=== PATIENT | female | born 1985 | race Caucasian/White ===

== ENCOUNTER 2023-07-13 12:10 | Emergency (ER) | payer OTHER, SELFPAY ==
--- NOTE | 2023-07-13 12:21 | ED.GENADULT ---
HPI - General Adult General Chief complaint: Upper Respiratory Symptoms Stated complaint: Sore throat Time Seen by Provider: 07/13/23 12:37 Source: patient Mode of arrival: ambulatory Limitations: no limitations History of Present Illness HPI narrative: patient is a 38-year-old female who presents emergency department report of sore throat for approximately 1 week had nausea earlier in the week but this has resolved, headache last night but also has resolved. She reports her daughter having tested positive for strep throat last week, has been on antibiotics for about 5 days at this point. 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 She expresses great concern that this is strep throat. She reports that she is able to eat and drink normally, swallowing without difficulty. Denies fevers, chills, neck pain, neck stiffness, chest pain, shortness of breath, abdominal pain. Related Data Previous Rx's ?Medication ?Instructions ?Recorded azithromycin 500 mg tablet 500 mg PO DAILY 5 days #5 tabs 07/13/23 Allergies Allergy/AdvReac Type Severity Reaction Status Date / Time amoxicillin [AMOXICILLIN] Allergy Severe HIVES Verified 07/13/23 12:25 penicillin V Allergy Unknown rash Verified 07/13/23 12:25 Penicillins [PENICILLINS] Allergy Unknown HIVES Verified 07/13/23 12:25 Review of Systems Review of Systems: Yes all other systems are reviewed and are negative PMFSH Past Medical History Attestation statement: The following information was validated with the patient. Source: old records reviewed Social History Social History Advance Directives: Yes Advance Directives Information Provided: Yes Advance Directives on File: No Physical Exam ED Vital Signs: Vital Signs - 24 hr 07/13/23 12:22 Temperature 98.9 F Pulse Rate 82 Respiratory Rate 18 Blood Pressure 125/78 Pulse Oximetry 100 Oxygen Delivery Method Room Air BMI result Body Mass Index 27.1 Appearance: Alert.?Oriented to person, place and time. No acute distress.?Normal affect. Eyes: Pupils equal, round and reactive to light.? ENT: Pharynx mildly erythematous. No tonsillar hypertrophy. No exudates. No trismus. No drooling. Uvula is midline. No petechiae. TM normal bilaterally Neck: Normal inspection.? Neck supple.? No? cervical adenopathy. CVS: Heart sounds normal. Normal heart rate and rhythm.? Pulses normal.?? Respiratory: No respiratory distress.? Lung sounds clear to auscultation bilaterally?? Abdomen: Soft and non-tender. Normoactive bowel sounds. Skin: Skin warm and dry.? Normal skin color.? Extremities: No lower extremity edema.? Neuro: Moves all extremities spontaneously. Sensation intact bilaterally. Ambulates with normal steady gait. Course Course Course Narrative: This is a rapid medical exam performed by Martell Noland NP: Additional HPI, ROS, PE not included below will be deferred to primary provider. Patient is a 38-year-old female presenting to the emergency department with complaint of sore throat for around one week. Daughter just had strep. Denies fevers, nausea on Sunday, headache yesterday. Plan: viral and strep swabs Medical Decision Making Medical Decision Making MDM Narrative: Patient is a 38 year old female, presenting for evaluation of upper respiratory symptoms. COVID-19/ influenza/ RSV negative. Strep A testing Negative. findings not suggestive of peritonsillar retropharyngeal abscess. However, given her recent close exposure to strep a positive child, will treat with a course of antibiotics. At this time history and physical exam not consistent with pneumonia. Well-appearing, nontoxic, afebrile, no tachycardia or tachypnea/hypoxia. Speaking clear full sentences, ambulatory with steady gait. Discussed conservative treatment including rest, hydration, Tylenol/ibuprofen as needed for fever and body aches, saline nasal spray, humidifier, [id number] cold medication. Advised to follow-up with primary care provider as needed, discussed reasons to return back to the emergency department. All questions were answered. Patient discharged home in stable condition. Differential Diagnosis Differential Diagnoses: The differential diagnosis associated with the presentation includes ( see narrative above) Admission/Observation Consideration of admission/observation: Escalation of care including admission/observation considered ( see narrative above) Lab Data [facility] Lab Attestation statement: I reviewed the patient's lab results. ( see narrative above) Labs: Lab Results 07/13/23 Range/Units 13:04 Influenza Type A (PCR) NEGATIVE (Negative) Influenza Type B (PCR) NEGATIVE (Negative) RSV RNA Qual (PCR) NEGATIVE (Negative) SARS-CoV-2 RNA (RT-PCR) NEGATIVE (Negative) S. pyogenes GrpA RITA Negative (Negative) External Record Review External record reviewed: Outpatient record Prescription Management I considered prescription management with: Pain Medication and Antibiotic Discharge Plan Discharge Clinical Impression: Pharyngitis Patient Disposition: Home, Self-Care Instructions: Pharyngitis (ED) Additional Instructions: Your testing today for strep throat was negative. Testing for COVID - 19/influenza / RSV was negative. Given your recent close exposure to child who has tested positive for strep, you are being treated with a course of antibiotics. Please follow-up with your primary care provider. You may also purchase throat lozenges/Chloraseptic throat spray from the pharmacy. Warm saltwater gargles or warmth to with honey may also be helpful for symptoms. You may return back to emergency department any new or worsening symptoms or concerns. Prescriptions: New azithromycin 500 mg tablet 500 mg PO DAILY 5 Days Qty: 5 0RF Referrals: Galindo Ramírez MD [Primary Care Provider] - Print Language: Turkmen
[2023-07-13 12:22] VITALS: BP 125/78; PULSE 82; RESP 18; TEMP 37.2; O2SAT 100; BMI 27.1
[2023-07-13 13:21] LABS: IDNOW Serial# 58CA691E; Strep A Nucleic Acid Negative (Negative)
[2023-07-13 13:50] LABS: Influenza A PCR NEGATIVE (Negative); Influenza B PCR NEGATIVE (Negative); Resp Syncy Virus RNA Qual PCR NEGATIVE (Negative); SARS COV2 PCR INHOUSE NEGATIVE (Negative)
[2023-07-13 14:14] VITALS: BP 125/78; PULSE 82; RESP 18; TEMP 37.2; O2SAT 98
== END 2023-07-13 14:15 | disposition home or self-care (01) ==
PROVIDERS: Registered Nurse Emergency; Emergency Provider Student in an Organized Health Care Education/Training Program; PCP Internal Medicine
DX: J02.9 Acute pharyngitis, unspecified (principal); Z11.52 Encounter for screening for COVID-19; Z20.822 Contact with and (suspected) exposure to COVID-19
CPT/HCPCS: 0241U; 87651; 99282; 99283

== ENCOUNTER 2024-11-07 12:00 | Emergency (ER) | payer OTHER, SELFPAY ==
--- NOTE | ~2024-11-07 | XR_ITS ---
EXAMINATION: XR RIBS 4 VIEWS BILATERAL WITH PA CHEST HISTORY: bilat lower pain COMPARISON: Comparison is made with the prior examination dated 07/25/2016. FINDINGS: A single PA view of the chest and 3 views of the bilateral ribs are submitted. The lungs are expanded and clear. There is no pleural effusion, pneumothorax, or pulmonary vascular congestion. The heart is normal in size. The bones are intact. No rib fractures identified. XR/XR ribs BI min 4V w CXR1V IMPRESSION: No acute cardiopulmonary abnormality. No evidence of fracture of the bilateral ribs. Electronically signed by: Indio Metzger MD 11/07/2024 12:26 PM EDT
[2024-11-07 12:03] VITALS: BP 131/68; PULSE 87; RESP 18; TEMP 36.6; O2SAT 97; BMI 25.7
--- NOTE | 2024-11-07 12:03 | ED.GENADULT ---
HPI - General Adult General Chief complaint: General Medical Stated complaint: rib pain Time Seen by Provider: 11/07/24 13:27 Source: patient and RN notes reviewed Mode of arrival: ambulatory Limitations: no limitations History of Present Illness ED Provider: JUWAN Hanley HPI narrative: 39-year-old female without significant medical history presents to the ED due to chronic rib pain. 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 Patient states Sunday pain became worse making her very uncomfortable, having difficulty bending down to the pain. Patient states she has not taken any OTC pain relievers for management. Additionally patient states she has been constantly spotting since getting a Depo-Provera shot approximately 2 months ago. Denies recent illness, chest pain, shortness of breath, abdominal pain, nausea, vomiting MD complaint: Bilateral rib pain Related Data Previous Rx's ?Medication ?Instructions ?Recorded azithromycin 500 mg tablet 500 mg PO DAILY 5 days #5 tabs 07/13/23 Allergies Allergy/AdvReac Type Severity Reaction Status Date / Time amoxicillin (AMOXICILLIN) Allergy Severe HIVES Verified 11/07/24 12:04 penicillin V Allergy Unknown rash Verified 11/07/24 12:04 Penicillins (PENICILLINS) Allergy Unknown HIVES Verified 11/07/24 12:04 Review of Systems Review of Systems: CONST: Negative for fever, body aches and chills. HENT: Negative for neck pain/stiffness, headache, congestion, sore throat, swelling. EYES: Negative for discharge/pain or vision changes. RESP: Negative for cough/hemoptysis and shortness of breath. CV: Negative chest pain, difficulty breathing, palpitations. ABD: Negative pain, nausea, vomiting. POS B/L lower rib pain : Negative increase frequency, dysuria, blood in urine or stool. MUSC: Negative for muscle aches, edema. SKIN: Negative rash, lesions/sores. NEURO: Negative headache, dizziness, weakness. Yes all other systems are reviewed and are negative [facility] Past Medical History Attestation statement: The following information was validated with the patient. Source: old records reviewed and nursing notes reviewed Social History Social History Smoked in Last 30 Days: Yes Use of substances other than those prescribed or required for medical reasons: No Advance Directives: No Advance Directives Information Provided: Yes Patient : No Physical Exam ED Vital Signs: Vital Signs - 24 hr 11/07/24 12:03 11/07/24 14:00 Temperature 97.8 F 98.1 F Pulse Rate 87 80 Respiratory Rate 18 15 Blood Pressure 131/68 127/76 Pulse Oximetry 97 99 Oxygen Delivery Method Room Air Room Air BMI result Body Mass Index 25.7 GENERAL APPEARANCE: ?AxOx4, generally well-appearing, no acute distress. HEENT: ?NC, AT. MMM. EOMI, clear conjunctiva, oropharynx clear. NECK: ?Supple without lymphadenopathy.? No stiffness or restricted ROM. HEART:? Normal rate and regular rhythm, normal S1/S2, no m/r/g LUNGS:? CTAB, moving air well. No crackles or wheezes are heard. ABDOMEN: ?Soft, nontender, nondistended with good bowel sounds heard. TTP of B/L ribs 8-10, no overlying skin changes, full ROM of torso BACK: No CVAT, no obvious deformity. EXTREMITIES: ?Without cyanosis, clubbing or edema. NEUROLOGICAL: ?Grossly nonfocal. Alert and oriented, moving all 4 extremities. Observed to ambulate with normal gait. Skin: ?Warm and dry without any rash. Course Course Course Narrative: This is a rapid medical exam performed by Martell Noland NP: Additional HPI, ROS, PE not included below will be deferred to primary provider. Patient is a 39-year-old female presenting with complaint of bilateral lower rib pain for the past few days. Denies fall or other trauma. Denies recent cough. Notes that she recently got a Depo shot, has been spotting since. Plan: Xray, labs Medical Decision Making Medical Decision Making MDM Narrative: 39-year-old female without significant medical history presents to the ED due to chronic rib pain. 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 Patient states Sunday pain became worse making her very uncomfortable, having difficulty bending down to the pain. Patient states she has not taken any OTC pain relievers for management. Additionally patient states she has been constantly spotting since getting a Depo-Provera shot approximately 2 months ago. VS on initial observation-normotensive BP 127/76, pulse rate of 80, respiratory rate 15, afebrile with oral temp of 98.1?, O2 saturation 99% on room air. Patient with tenderness of bilateral ribs 8 through 10, no back tenderness, no overlying skin changes. Plan: Labs, CXR/XR ribs Course 14:31- Labs without leukocytosis/leukopenia, H&H stable, no electrolyte abnormality CXR/XR ribs negative for fracture or dislocation. Patient without recent illness or cough, no increase of physical activity, no trauma or injury. At this time I believe patient may be experiencing costochondritis or slipping rib syndrome. I counseled patient to follow up with primary care provider, states she does not have one I provided referrals and discharge paperwork. I counseled patient to alternate 500 mg of Tylenol and 400 mg of ibuprofen every 6 hours for management of pain and possible inflammation. Patient was concerned that she had been spotting since getting Depo-Provera shot 2 months ago, patient with light spotting not soaking through pads. I counseled patient that this can be normal 3 to six-months after receiving shot and only needs to be concerned when she is soaking through more than 1 pad per hour. Patient feels good for to go home for self-care, she is in agreement with the plan, I counseled patient on strict return precautions. Differential Diagnosis Differential Diagnoses: The differential diagnosis associated with the presentation includes Rib fracture Rib dislocation Costochondritis, slipping rib syndrome Admission/Observation Consideration of admission/observation: Escalation of care including admission/observation considered Lab Data MDM Lab Attestation statement: I reviewed the patient's lab results. 11/07/24 12:13 11/07/24 12:13 Labs: Lab Results 11/07/24 11/07/24 Range/Units 12:13 12:41 WBC 6.6 (4.8-10.8) X10*3/uL RBC 3.75 L (4.20-5.50) X10*6/uL Hgb 10.6 L (12.0-16.0) g/dl Hct 31.8 L (37.0-47.0) % MCV 84.8 (80.0-98.0) fL MCH 28.3 (27.0-33.0) pg MCHC 33.3 (31.0-35.0) g/dl RDW 14.2 (11.0-16.0) % Plt Count 309 (160-400) X10*3/uL MPV 9.3 L (9.4-12.3) fL Immature Gran % (Auto) 0.2 (0.0-0.4) % Neut % (Auto) 59.3 (45-73) % Lymph % (Auto) 32.9 (20-40) % Alcorn % (Auto) 5.3 (2-11) % Eos % (Auto) 1.5 (0-4) % Baso % (Auto) 0.8 (0-2) % Lymph # (Auto) 2.2 (1.2-4.9) X10*3/uL Alcorn # (Auto) 0.4 (0.1-1.2) X10*3/uL Eos # (Auto) 0.1 (0.0-0.4) X10*3/uL Baso # (Auto) 0.1 (0.0-0.2) X10*3/uL Abs Immat Gran (auto) 0.01 (0.00-0.03) X10*3/uL Absolute Neuts (auto) 3.9 (2.0-8.3) x10*3/uL Absolute Nucleated RBC 0.000 (0.0-0.012) X10*3/uL Nucleated RBC % (auto) 0.0 (0.0-0.2) /100WBC PT 12.1 (10.9-12.4) SEC INR 1.1 (0.9-1.1) Sodium 139 (135-145) mmol/L Potassium 3.9 (3.3-5.1) mmol/L Chloride 110 H (96-108) mmol/L Carbon Dioxide 22 (22-29) mmol/L Anion Gap 11 L (12-20) BUN 14 (9-16) mg/dL Creatinine 0.79 (0.5-1.4) mg/dL Estim Creat Clear Calc 99.9 Estimated GFR > 60 Random Glucose 93 (60-115) mg/dL Calcium 8.5 (8.4-10.2) mg/dL Total Bilirubin 0.3 (0.0-1.0) mg/dL AST 18 (5-31) U/L ALT 12 (0-31) U/L Alkaline Phosphatase 37 L (39-117) U/L Total Protein 7.0 (6.5-8.0) g/dL Albumin 4.5 (3.5-5.0) g/dL Beta HCG, Quant < 2 mIU/mL Independent Interpretation I performed an independent interpretation of an: Plain X-Ray Interpretation: I personally interpreted the chest/ribs x-ray which was negative for dislocation or fracture, I agree with the radiologist's interpretation Radiology Impression Discussion of test interpretation with radiology: I have reviewed the radiologist's reading. Radiologist Impression: CXR/XR ribs FINDINGS: A single PA view of the chest and 3 views of the bilateral ribs are submitted. The lungs are expanded and clear. There is no pleural effusion, pneumothorax, or pulmonary vascular congestion. The heart is normal in size. The bones are intact. No rib fractures identified. XR/XR ribs BI min 4V w CXR1V IMPRESSION: No acute cardiopulmonary abnormality. No evidence of fracture of the bilateral ribs. Electronically signed by: Indio Metzger MD 11/07/2024 12:26 PM EDT RP Dictated By: Indio Metzger MD Signed By: <Electronically signed by Indio Metzger MD in OV> 11/07/24 1226 External Record Review External record reviewed: Inpatient record, Office record and Outpatient record Chronic Conditions Patient?s care impacted by: Other (No medical history) Discharge Plan Discharge Clinical Impression: Costochondritis Patient Disposition: Home, Self-Care Instructions: Costochondritis (DC) Additional Instructions: You were evaluated in the ED today due to bilateral rib pain. Your lab work was normal and negative for any infectious process, no electrolyte abnormality. Your chest x-ray revealed normal heart, lungs, without evidence of fracture or dislocation of the bilateral ribs. At this time I suspect he may have a condition called costochondritis which was inflammation of the cartilage that connects ribs to her breastbone, or possibly slipping rib syndrome which is a condition where the lower ribs become abnormally mobile which can cause pain and discomfort, both non-emergent conditions. To manage pain at home I recommend alternating 500 mg of Tylenol and 400 mg of ibuprofen every 6 hours. You can ice and/or use heat whatever you prefer to help manage your symptoms. Please return to the emergency department if you experience worsening rib pain, difficulty breathing, shortness of breath, chest pain, fevers over 100.4?, nausea, vomiting or any other new/worsening/concerning symptoms. Prescriptions: No Action azithromycin 500 mg tablet 500 mg PO DAILY 5 Days Qty: 5 0RF Referrals: [facility] [Provider Group, Family Practice] [facility] [Provider Group, Family Practice] Ronak Modi DO [Physician, Family Practice] Alexa Preston NP [Nurse Practitioner, Family Practice] Print Language: Bulgarian
[2024-11-07 12:18] LABS: MANUAL DIFF FLAG NO
[2024-11-07 12:20] LABS: Hematocrit 31.8 % (37.0-47.0); Hemoglobin 10.6 g/dl (12.0-16.0); Imm Gran Abs Auto 0.01 X10*3/uL (0.00-0.03); Imm Gran Pct Auto 0.2 % (0.0-0.4); Lymphocytes Absolute Auto 2.2 X10*3/uL (1.2-4.9); Mean Corpuscular HGB Conc 33.3 g/dl (31.0-35.0); Mean Corpuscular Hemoglobin 28.3 pg (27.0-33.0); Mean Corpuscular Volume 84.8 fL (80.0-98.0); NRBC Abs Auto 0.000 X10*3/uL (0.0-0.012); NRBC Pct Auto 0.0 /100WBC (0.0-0.2); Platelet Count 309 X10*3/uL (160-400); Red Blood Count 3.75 X10*6/uL (4.20-5.50); White Blood Count 6.6 X10*3/uL (4.8-10.8)
[2024-11-07 12:42] LABS: Alanine Aminotransferase 12 U/L (0-31); Albumin Level 4.5 g/dL (3.5-5.0); Alkaline Phosphatase 37 U/L (39-117); Anion Gap 11 (12-20); Aspartate Amino Transferase 18 U/L (5-31); Blood Urea Nitrogen 14 mg/dL (9-16); Calcium 8.5 mg/dL (8.4-10.2); Carbon Dioxide 22 mmol/L (22-29); Chloride 110 mmol/L (96-108); Creatinine Clr Calc Pharmacy 99.9; Estimated Glomerular Filt Rate > 60; Potassium 3.9 mmol/L (3.3-5.1); Sodium 139 mmol/L (135-145); Total Protein 7.0 g/dL (6.5-8.0)
--- OUTSIDE RECORDS SUMMARY | 2024-11-07 13:11 | XMS_ITS ---
Author Name [facility] Organization Unknown Care Team Organization Name Specialty Phone Email Start Date End Da te [facility] Galindo Ramírez Primary Care 06/06/20222023 [facility] Sonja Greene Primary Care 01/10/20222023
--- OUTSIDE RECORDS SUMMARY | 2024-11-07 13:11 | XMS_ITS | Clinical Summary ---
Author Organization [facility] Address [address] [place] [address] Phone Care Team Providers Care Supervisor F[employer]izer Processing Name Role Phone Galindo Ramírez MD Primary Care Provider [phone] Allergies Active Allergy Reactions Criticality Noted Date Comments Amoxicillin Hives 07/12/2023 Penicillins Hives 07/12/2023 Medications No known medications Active Problems No known active problems Social History Tobacco Use Types Packs/Day Years Used Date Smoking Tobacco: Every Day Cigarettes Smokeless Tobacco: Never Tobacco Cessation:Ready to Q uit: Not Asked; Counseling Given: Not Answered Education Answer Date Recorded Are you interested in more education? Not on wilfredo e 07/12/2023 Are you concerned about learning? Not on file 07/12/2023 No 07/12/2023 No 07/12/2023 Digital Access Answer Date Recorded No 07/12/2023 No 07/12/2023 Reliable internet access at home? Not on file 07/12/2023 Device with a working camera? Not on file Comments Unknown Sex and Gender Information Value Date Recorded Sex Assigned at Not on file Legal Sex Female 9:14 PM EDT Gender Identity Not on file Sexual Orientation Not on file Last Filed Vital Signs Vital Sign Reading Time Taken Comments Blood Pressure 123/76 07/12/2023 2:12 PM EDT Pulse 77 07/12/2023 2:12 PM EDT Temperature 37 C (98.6 F) 07/12/2023 2:12 PM EDT Respiratory Rate 16 07/12/2023 2:12 PM EDT Oxygen Saturation 99% 07/12/2023 2:12 PM EDT Inhaled Oxygen Concentration - - Weight 67.1 kg (148 lb) 07/12/2023 2:12 PM EDT p er pt Height - - Body Mass Index - - Plan of Treatment Health Maintenance Due Date Last Done Comments Adult Td,Tdap Booster 1985 DEPRESSION SCREENING 1997 SMOKING Hx and SMOKELESS TOB ACCO SCREENING 1998 HEPATITIS C SCREENING 2003 HIV ONE-TIME SCREENING (18-6 5 YEARS) 2003 PNEUMOCOCCAL VACCINES (0-49 years) (1 of 2 - PCV) 2004 PAP SMEAR 2006 INFLUENZA VACCINE (#1) 2024 COVID-19 VACCINE (1 - 2023-2 5 season) 2024 HEPATITIS A VACCINES Aged Out No long er eligible based on patient's age to complete this topic HIB VACCINES Aged Out No longer eligi ble based on patient's age to complete this topic MENINGOCOCCAL VACCINES (ACWY) Aged Out No longer eligible based on patient's age to complete this topic MENINGOCOCCAL VACCINES (B) Aged Out N o longer eligible based on patient's age to complete this topic Medical Devices Not on file Insurance [employer] [facility] [place] [address] [place] [address] [facility] Member Subscriber Plan / Payer (Ef fective 2016-Present) Name:Anu Gonzalez Relation to Subscriber:Self Name:ANU GONZALEZ Payer ID:[id number] (NAIC) Group ID:Not on file Type:Medicaid Address: [place] [id number] [facility] Member Subscriber Plan / Payer (Ef fective 2016-Present) Name:Anu Gonzalez Relation to Subscriber:Self Name:ANU GONZALEZ Payer ID:[id number] (NAIC) Group ID:Not on file Type:Medicaid Address: [address] [employer]GETHER Member Subscriber Plan / Payer (Ef fective 2016-Present) Name:Anu Gonzalez Relation to Subscriber:Self Name:ANU GONZALEZ Payer ID:[id number] (NAIC) Group ID:Not on file Type:Medicaid [address]: [address] [facility] [employer] [facility] Care Teams Supervisor Fertilizer Processing Relationship Specialty Start Date End Date Galindo Ramírez MD [address] [place] [id number] PCP - General 07/12/23 Additional Source Comments The information contained in this document represents components of the legal health record. It is not the complete legal health record.[facility]
[2024-11-07 13:22] LABS: INTERNATIONAL NORM RATIO 1.1 (0.9-1.1); Prothrombin Time 12.1 SEC (10.9-12.4)
[2024-11-07 14:00] VITALS: BP 127/76; PULSE 80; RESP 15; TEMP 36.7; O2SAT 99
[2024-11-07 14:39] VITALS: BP 127/76; PULSE 80; RESP 15; TEMP 36.7; O2SAT 99
== END 2024-11-07 14:39 | disposition home or self-care (01) ==
PROVIDERS: Registered Nurse Emergency; Emergency Provider Emergency Medicine
DX: M94.0 Chondrocostal junction syndrome [Tietze] (principal); R07.81 Pleurodynia
CPT/HCPCS: 36415; 71111; 80053; 84702; 85025; 85610; 99283; 99284

== ENCOUNTER → 2024-11-07 12:04 | Outpatient (BNV) | payer OTHER, SELFPAY | PROVIDERS: Visit Provider Radiology Diagnostic Radiology | DX: R07.89 Other chest pain (principal) | CPT/HCPCS: 71111 ==